=== PATIENT | male | born 1975 | race Hispanic/Latino ===

== ENCOUNTER 2018-01-28 20:46 | Emergency (ER) | payer SELFPAY ==
[~2018-01-28] VITALS: Ht 175.3 cm; Wt 118.4 kg
[~2018-01-28 20:46] MED LIST: ATUSS DS OR; CEPHALEXIN500 MG PO; HYDROXYZ HCL25 MG PO; NAPROSYN500 MG PO; NO HOME MEDS; ZPAK OR
[2018-01-28] MEDS ORDERED: VOLTAREN - GENE75 MG PO (22:53)
[2018-01-28 23:03] VITALS: BP 119/70
== END 2018-01-28 23:06 | disposition home or self-care (01) | DRG 103 ==
LOC: ED 20:46
DX: R51 Headache (principal)

== ENCOUNTER 2021-01-22 20:04 | Emergency (ER) | payer OTHER ==
[~2021-01-22] VITALS: Ht 175.3 cm; Wt 122.0 kg
[~2021-01-22 20:04] MED LIST changes: +VOLTAREN - GENE75 MG PO
[2021-01-22 22:52] LABS: HEMATOCRIT 38.8 % (39.0-50.0); HEMOGLOBIN 13.1 g/dl (14.0-18.0); IMMATURE GRANULOCYTES 0.1 % (0.0-5.0); MEAN CELL VOLUME 89.4 fL CALC (80.0-100.0); MEAN CORPUSCULAR HGB 30.2 pG CALC (26.0-32.0); MEAN CORPUSCULAR HGB CONC 33.8 g/dL CAL (32.0-36.0); NEUT# 5.54 thou/uL (1.82-7.42); RED BLOOD COUNT 4.34 mill/uL (4.70-6.10); RED CELL DISTRI WIDTH 12.1 % (11.5-15.5)
[2021-01-22 23:07] LABS: ALBUMIN 3.6 g/dL (3.2-5.0); ALKALINE PHOSPHATASE 40 u/l (38-126); AMYLASE 57 u/l (30-110); BILIRUBIN, TOTAL 0.7 mg/dL (0.0-1.4); BUN 12 mg/dL (9-20); BUN/CREATININE RATIO 13 (12-20 (CALC)); CARBON DIOXIDE 32 mmol/l (22-30); CHLORIDE 93 mmol/l (95-108); CREATININE 0.9 mg/dL (0.7-1.3); GFR > 60 ML/MIN (>=60 (CALC)); GFR FOR AFR.AMER. > 60 ML/MIN (>=60 (CALC)); LIPASE 172 u/l (23-300); POTASSIUM 3.9 mmol/l (3.5-5.1); TOTAL PROTEIN 6.6 g/dL (6.3-8.2)
[2021-01-22 23:08] LABS: ANION GAP 11 (6-22 (CALC)); SGOT/AST 158 u/l (17-59); SODIUM 132 mmol/l (137-146)
[2021-01-23 00:05] VITALS: BP 118/68
== END 2021-01-23 00:13 | disposition home or self-care (01) | DRG 179 ==
LOC: ED 20:04
PROVIDERS: Family Medicine
DX: U07.1 COVID-19 (principal); R73.9 Hyperglycemia, unspecified; R10.13 Epigastric pain; R11.0 Nausea; T36.3X5A Adverse effect of macrolides, initial encounter

== ENCOUNTER 2022-05-24 04:36 | Emergency (ER) | payer SELFPAY ==
[2022-05-24] VITALS (9 sets, daily range): BP systolic 114–135; BP diastolic 77–88
[~2022-05-24] VITALS: Ht 175.3 cm; Wt 122.0 kg
[2022-05-24] MEDS ORDERED: METFORMIN500 M2 PO (05:09)
[2022-05-24] MEDS ORDERED: ROSUVASTATIN CAL5 MG (05:10)
[2022-05-24 05:30] LABS: BASO% 0.6 % (0-3); EOS% 6.8 % (0-8); HEMATOCRIT 44.7 % (39.0-50.0); IMMATURE GRANULOCYTES 0.4 % (0.0-5.0); LYMPH% 39.9 % (15-41); MEAN CELL VOLUME 89.2 fL CALC (80.0-100.0); MEAN CORPUSCULAR HGB 30.7 pG CALC (26.0-32.0); MEAN CORPUSCULAR HGB CONC 34.5 g/dL CAL (32.0-36.0); NEUT# 2.13 thou/uL (1.82-7.42); NEUT% 45.3 % (42-76); RED BLOOD COUNT 5.01 mill/uL (4.70-6.10)
[2022-05-24 05:31] LABS: URINE BILIRUBIN - DIPSTICK NEGATIVE (NEGATIVE); URINE BLOOD DIPSTICK NEGATIVE (NEGATIVE); URINE COLOR YELLOW; URINE GLUCOSE - DIPSTICK NEGATIVE (NEGATIVE); URINE KETONE NEGATIVE (NEGATIVE); URINE LEUK ESTERASE NEGATIVE (NEGATIVE); URINE PROTEIN - DIPSTICK NEGATIVE (NEG-TRACE); URINE UROBILINOGEN - DIPSTICK 0.2 E.U./dL (0.2)
[2022-05-24 05:32] LABS: HEMOGLOBIN 15.4 g/dl (14.0-18.0)
[2022-05-24 05:37] LABS: URINE NITRITE - DIPSTICK NEGATIVE (Negative)
[2022-05-24 05:42] LABS: ALKALINE PHOSPHATASE 50 u/l (38-126); AMYLASE 79 u/l (30-110); BUN 12 mg/dL (9-20); BUN/CREATININE RATIO 15 (12-20 (CALC)); CARBON DIOXIDE 30 mmol/l (22-30); CREATININE 0.8 mg/dL (0.7-1.3); GFR FOR AFR.AMER. > 60 ML/MIN (>=60 (CALC)); GFR OTHER RACES > 60 ML/MIN (>=60 (CALC)); LIPASE 171 u/l (23-300); POTASSIUM 4.1 mmol/l (3.5-5.1)
[2022-05-24 05:45] LABS: ALBUMIN 4.9 g/dL (3.2-5.0); ANION GAP 12 (6-22 (CALC)); BILIRUBIN, TOTAL 0.3 mg/dL (0.0-1.4); CHLORIDE 105 mmol/l (95-108); SGOT/AST 36 u/l (17-59); SODIUM 143 mmol/l (137-146); TOTAL PROTEIN 8.3 g/dL (6.3-8.2)
== END 2022-05-24 09:57 | disposition home or self-care (01) | DRG 392 ==
LOC: ED 04:36
PROVIDERS: Emergency Medicine
DX: R10.12 Left upper quadrant pain (principal)
CPT/HCPCS: Q9967